=== PATIENT | female | born 1970 | race Caucasian/White ===

== ENCOUNTER 2020-01-08 16:00 | Outpatient (CLI) | payer BC, SELFPAY ==
--- NOTE | ~2020-01-08 | CT_ITS ---
EXAMINATION: CT foot LT wo con DATE: 01/08/2020 16:29 INDICATION: Metatarsalgia of left foot. TECHNIQUE: Computed tomography (CT) of the left foot and ankle was performed without intravenous cont rast. Automated exposure control and iterative reconstruction technique were employed. The dose-lengt h product was 319.26 mGy-cm. COMPARISON: None FINDINGS: There are changes of bunionectomy. There is an oblique fracture versus osteotomy of neck of first metatarsal. The distal fracture fragment demonstrates impaction, 20 degrees plantar angulation , and 20 degrees lateral angulation. There is internal fixation with 2 screws. No visible callus. The re is a screw in head and neck of second metatarsal. 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 Joint spaces are normal. There are enthesophytes at the posterior and planta r aspects of calcaneal tuberosity. IMPRESSION: 1. Oblique fracture versus osteotomy of neck of first metatarsal with internal fixation. Reviewed, dictated and finalized at location A. [employer]
== END 2020-01-08 16:01 | disposition home or self-care (01) ==
LOC: ANHIMG 16:03
PROVIDERS: Visit Provider Podiatrist Foot & Ankle Surgery
DX: S92.315A Nondisplaced fracture of first metatarsal bone, left foot, initial encounter for closed fracture (principal); X58.XXXA Exposure to other specified factors, initial encounter
CPT/HCPCS: 73700

== ENCOUNTER 2020-06-04 08:17 | Outpatient (CLI) | payer BC, SELFPAY ==
[2020-06-04 09:54] LABS: Erythrocyte Sedimentation Rate 13 mm/hr (0-15)
[2020-06-04 10:15] LABS: RFT Charge Test YES; Rheumatoid Factor Screen Positive (Negative)
[2020-06-04 10:37] LABS: CRP < 0.2 mg/dL (0.0-0.9); Free T4 Free Thyroxine 0.82 ng/dL (0.76-1.46); Thyroid Stimulating Hormone 4.12 uIU/mL (0.36-3.74); Uric Acid 3.2 mg/dL (2.6-6.0)
[2020-06-09 11:56] LABS: HLA B27 Negative (Negative)
[2020-06-09 14:31] LABS: Anti Cyclic Citrullinated Pept <16 Units (<20)
== END 2020-06-04 08:18 | disposition home or self-care (01) ==
PROVIDERS: PCP Nurse Practitioner; Visit Provider Podiatrist Foot & Ankle Surgery
DX: M25.572 Pain in left ankle and joints of left foot (principal); E03.9 Hypothyroidism, unspecified
CPT/HCPCS: 36415; 84439; 84443; 84550; 85652; 86140; 86200; 86430; 86431; 86812

== ENCOUNTER 2021-01-12 09:46 | Outpatient (CLI) | payer OTHER, SELFPAY ==
[2021-01-12 10:37] LABS: Free T4 Free Thyroxine 0.94 ng/dL (0.76-1.46); Thyroid Stimulating Hormone 0.12 uIU/mL (0.36-3.74)
== END 2021-01-12 09:47 | disposition home or self-care (01) ==
PROVIDERS: PCP Nurse Practitioner; Visit Provider Obstetrics & Gynecology Gynecology
DX: E03.9 Hypothyroidism, unspecified (principal)
CPT/HCPCS: 36415; 84439; 84443

== ENCOUNTER 2021-06-15 10:40 | Outpatient (CLI) | payer OTHER, SELFPAY ==
[2021-06-15 12:15] LABS: Free T4 Free Thyroxine 1.11 ng/dL (0.76-1.46); Thyroid Stimulating Hormone 0.17 uIU/mL (0.36-3.74); Vitamin B12 397 pg/mL (193-986)
[2021-06-18 12:54] LABS: Vitamin D 25 Hydroxy 36 ng/mL (30-100)
== END 2021-06-15 10:41 | disposition home or self-care (01) ==
LOC: CHSLAB 10:43
PROVIDERS: Visit Provider Nurse Practitioner
DX: E03.9 Hypothyroidism, unspecified (principal); E55.9 Vitamin D deficiency, unspecified; E53.8 Deficiency of other specified B group vitamins
CPT/HCPCS: 36415; 82306; 82607; 84439; 84443

== ENCOUNTER 2021-08-25 13:57 | Outpatient (CLI) | payer OTHER, SELFPAY ==
[2021-08-25 15:49] LABS: Free T4 Free Thyroxine 0.93 ng/dL (0.76-1.46); Thyroid Stimulating Hormone 0.26 uIU/mL (0.36-3.74)
== END 2021-08-25 13:58 | disposition home or self-care (01) ==
LOC: CHSLAB 14:00
PROVIDERS: PCP Family Medicine Sports Medicine; Visit Provider Obstetrics & Gynecology Gynecology
DX: E03.9 Hypothyroidism, unspecified (principal)
CPT/HCPCS: 36415; 84439; 84443

== ENCOUNTER 2022-05-18 07:27 | Outpatient (CLI) | payer OTHER, SELFPAY ==
[2022-05-18 08:31] LABS: Free T4 Free Thyroxine 0.89 ng/dL (0.76-1.46); Thyroid Stimulating Hormone 4.58 uIU/mL (0.36-3.74)
[2022-05-22 20:57] LABS: Vitamin D 25 Hydroxy 42 ng/mL (30-100)
== END 2022-05-18 07:28 | disposition home or self-care (01) ==
LOC: CHSLAB 07:29
PROVIDERS: PCP Nurse Practitioner; Visit Provider Nurse Practitioner
DX: E55.9 Vitamin D deficiency, unspecified (principal); E03.9 Hypothyroidism, unspecified
CPT/HCPCS: 36415; 82306; 84439; 84443